=== PATIENT | male | born 1980 | race African-American/Black ===

== ENCOUNTER 2016-09-01 23:37 | Emergency (ER) | payer MEDICARE, OTHER ==
[~2016-09-01] VITALS: Ht 185.4 cm; Wt 93.0 kg
[2016-09-01] MEDS ORDERED: Depakote 500mg tab ORAL ONE (23:45)
[2016-09-01] MEDS ORDERED: NKM (23:50)
[2016-09-02 00:37] LABS: BASOPHILS % (AUTO) 1.7 % (0.0-2.0); EOSINOPHILS % (AUTO) 1.4 % (0.0-3.0); LYMPHOCYTES % (AUTO) 48.7 % (20.0-45.0); MEAN CORPUSCULAR HEMOGLOBIN 30.6 PG (27.0-31.0); MEAN CORPUSCULAR VOLUME 93 FL (80-99); MEAN PLATELET VOLUME 5.7 FL (6.5-10.1); MONOCYTES % (AUTO) 10.8 % (1.0-10.0); NEUTROPHILS % (AUTO) 37.4 % (45.0-75.0); PLATELET COUNT 248 K/UL (150-450); RED BLOOD COUNT 4.98 M/UL (4.70-6.10); WHITE BLOOD COUNT 6.4 K/UL (4.8-10.8)
[2016-09-02 00:52] LABS: ACETAMINOPHEN < 10 ug/mL (10-30); ALANINE AMINOTRANSFERASE 99 U/L (3-41); ALBUMIN/GLOBULIN RATIO 1.3 (1.0-2.7); ALCOHOL 312 mg/dL; ANION GAP 16 (5-15); ASPARTATE AMINO TRANSFERASE 105 U/L (5-40); CALCIUM 9.3 mg/dL (8.6-10.2); CARBON DIOXIDE 24 mEQ/L (20-30); CHLORIDE 100 mEQ/L (98-107); GLOMERULAR FILTRATION RATE > 60 mL/min (>60); HEMOLYSIS 5; POTASSIUM 3.8 mEQ/L (3.4-4.9); SODIUM 140 mEQ/L (135-145); TOTAL PROTEIN 8.1 g/dL (6.6-8.7); VALPROIC ACID < 3 ug/mL (50-100)
--- NOTE | 2016-09-02 01:35 | Emergency Room Report ---
History of Present Illness General Chief Complaint: Behavioral Complaint Source: Patient, EMS Present Illness HPI Patient brought to the emergency department via EMS. They were summoned because he stated he wanted to kill himself. He didn't have a plan. He had been drinking alcohol. He's been off of his psychiatric medication for many months. He usually takes Risperdal, Depakote and Paxil. He's been drinking tonight. He drinks daily for several days. He denies nausea vomiting diarrhea. He denies chest pain, shortness of breath. There is no rashes. He denies fever dysuria. Allergies: Coded Allergies: No Known Allergies (Unverified , 09/01/16) Patient History Past Medical History: see triage record Social History: Reports: alcohol use Social History Narrative at home Reviewed Nursing Documentation: PMH: Agreed, PSxH: Agreed Nursing Documentation-PMH Hx Asthma: Yes History Of Psychiatric Problem: Yes - Bipolar Review of Systems All Other Systems: negative except mentioned in HPI Physical Exam Vital Signs Date Time Temp Pulse Resp B/P Pulse Ox O2 Delivery O2 Flow Rate FiO2 09/01/16 23:45 98.6 87 18 115/66 100 Sp02 EP Interpretation: reviewed, normal General Appearance: well appearing, no apparent distress, GCS 15 Head: normocephalic Eyes: bilateral eye PERRL, bilateral eye Scleral Injection ENT: moist mucus membranes Neck: supple Respiratory: lungs clear, normal breath sounds Cardiovascular #1: regular rate, rhythm Cardiovascular #2: 2+ radial (R) Gastrointestinal: normal inspection, normal bowel sounds, non tender, no mass, non-distended Musculoskeletal: back normal, gait/station normal, normal range of motion Neurologic: alert, oriented x3, grossly normal - sl ataxia but ambulatory Psychiatric: depressed affect Suicide Risk Assessment: Suicidal Ideation: Yes Had intent to initiate attempt: Yes - allegedly Pt's plan for suicide attempt: No Has means to complete attempt: No Skin: normal inspection, warm/dry Medical Decision Making Diagnostic Impression: Primary Impression: Suicidal ideation Additional Impressions: Alcohol intoxication Qualified Codes: F10.929 - Alcohol use, unspecified with intoxication, unspecified Non-compliance ER Course Patient is noncompliant and presents with suicidal ideation. Differential includes exacerbation of bipolar disorder, schizoaffective disorder, and major depression, electrolyte imbalance, acute intoxication amongst others. Evaluation medically will be undertaken. In addition to his medications that he has been taking in the past will be given to him. Labs are remarkable for an elevated blood alcohol. We need to reassess the patient at that time. KENROY placed the patient on 5150. We will repeat the BA in the AM. Signed out to Dr. Quick. Laboratory Tests Test 09/02/16 00:17 White Blood Count 6.4 K/UL (4.8-10.8) Red Blood Count 4.98 M/UL (4.70-6.10) Hemoglobin 15.3 G/DL (14.2-18.0) Hematocrit 46.2 % (42.0-52.0) Mean Corpuscular Volume 93 FL (80-99) Mean Corpuscular Hemoglobin 30.6 PG (27.0-31.0) Mean Corpuscular Hemoglobin Concent 33.0 G/DL (32.0-36.0) Red Cell Distribution Width 13.0 % (11.6-14.8) Platelet Count 248 K/UL (150-450) Mean Platelet Volume 5.7 FL (6.5-10.1) L Neutrophils (%) (Auto) 37.4 % (45.0-75.0) L Lymphocytes (%) (Auto) 48.7 % (20.0-45.0) H Monocytes (%) (Auto) 10.8 % (1.0-10.0) H Eosinophils (%) (Auto) 1.4 % (0.0-3.0) Basophils (%) (Auto) 1.7 % (0.0-2.0) Sodium Level 140 mEQ/L (135-145) Potassium Level 3.8 mEQ/L (3.4-4.9) Chloride Level 100 mEQ/L (98-107) Carbon Dioxide Level 24 mEQ/L (20-30) Anion Gap 16 (5-15) H Blood Urea Nitrogen 10 mg/dL (7-23) Creatinine 1.0 mg/dL (0.7-1.2) Estimate Glomerular Filtration Rate > 60 mL/min (>60) Glucose Level 95 mg/dL (74-106) Calcium Level 9.3 mg/dL (8.6-10.2) Total Bilirubin 0.3 mg/dL (0.0-1.2) Aspartate Amino Transferase (AST) 105 U/L (5-40) H Alanine Aminotransferase (ALT) 99 U/L (3-41) H Alkaline Phosphatase 72 U/L (40-129) Total Protein 8.1 g/dL (6.6-8.7) Albumin 4.7 g/dL (3.5-5.2) Globulin 3.4 g/dL Albumin/Globulin Ratio 1.3 (1.0-2.7) Salicylates Level < 1 mg/dL (10-30) L Acetaminophen Level < 10 ug/mL (10-30) L Valproic Acid Level < 3 ug/mL (50-100) L Serum Alcohol 312 mg/dL EKG Diagnostic Results Rate: normal Rhythm: NSR ST Segments: no acute changes Rhythm Strip Diag. Results EP Interpretation: yes Rhythm: NSR, no PVC's, no ectopy Last Vital Signs Date Time Temp Pulse Resp B/P Pulse Ox O2 Delivery O2 Flow Rate FiO2 09/02/16 05:36 98.6 87 18 135/82 100 Room Air Status: improved Scripts Divalproex Sodium* (DEPAKOTE ER*) 500 Mg Tab.er.24h 500 MG ORAL EVERY 12 HOURS, #30 TAB Prov: MAXIMILIAN QUICK M.D. 09/02/16 Referrals: NOT CHOSEN SANDIP/,REFERRING (PCP) Hietsh Jamison M.D. Sep 02, 2016 01:35
[2016-09-02 01:38] VITALS: BP 119/78
[2016-09-02 03:41] VITALS: BP 120/88
[2016-09-02 05:36] VITALS: BP 135/82
[2016-09-02] MEDS ORDERED: PARoxetine 10mg tab ORAL SCH (09:00)
[2016-09-02 10:57] VITALS: BP 138/81
[2016-09-02] MEDS ORDERED: DEPAKOTE ER500 MG ORAL (10:57)
[2016-09-02 11:05] VITALS: BP 138/81
== END 2016-09-02 11:13 | disposition home or self-care (01) ==
LOC: EDBD 23:37 → EMR 23:59
DX: R45.851 Suicidal ideations (principal); F10.929 Alcohol use, unspecified with intoxication, unspecified; Z91.19 Patient's noncompliance with other medical treatment and regimen; F31.9 Bipolar disorder, unspecified; J45.909 Unspecified asthma, uncomplicated
CPT/HCPCS: 36415; 80053; 80164; 80300; 85025; 99284; G0480; 80329